=== PATIENT | male | born 1940 | race Caucasian/White ===

== ENCOUNTER 2017-09-01 14:57 | Emergency (ER) | payer MEDICARE, BC ==
[2017-09-01] MEDS ORDERED: Sodium Chloride 0.9% 10 ML Syringe FLUSH PRN (15:04)
[2017-09-01] MEDS ORDERED: Sodium Chloride 0.9% 2.5 ML Syringe FLUSH PRN (15:04)
--- NOTE | 2017-09-01 15:15 | EDM.PDOC ---
ED HPI GENERAL MEDICAL PROBLEM - General Chief Complaint: Neurological Problem Stated Complaint: CONFUSION Time Seen by Provider: 09/01/17 15:00 Source of Information: Reports: Patient History Limitations: Reports: No Limitations - History of Present Illness INITIAL COMMENTS - FREE TEXT/NARRATIVE: HISTORY AND PHYSICAL: History of present illness: [Patient comes to the emergency room to be evaluated for "change in his thinking ". He resides at a local assisted living facility. He states that his daughter called his doctor this morning regarding this change, and was advised to have the patient be seen in the emergency room. He states that he doesn't feel as though he is thinking clearly and he feels confused. No complaints or concerns. Denies recent illness infection and injury. Denies abdominal pain nausea and vomiting. No muscle or joint aches or pains. Complete Review of systems is reviewed and is completely negative.] Review of systems: As per history of present illness and below otherwise all systems reviewed and negative. Past medical history: As per history of present illness and as reviewed below otherwise noncontributory. Surgical history: As per history of present illness and as reviewed below otherwise noncontributory. Social history: No reported history of drug or alcohol abuse. Family history: As per history of present illness and as reviewed below otherwise noncontributory. Physical exam: HEENT: Atraumatic, normocephalic. Oral mucous membranes are pink and moist. Neck supple, no lymphadenopathy, trachea midline. Lungs: Clear to auscultation, breath sounds equal bilaterally. Heart: S1S2, regular rate and rhythm. negative for clicks, rubs, or JVD. Abdomen: Soft, nondistended, nontender. Negative for masses, guarding and rebound. Pelvis: Stable nontender. Genitourinary: Deferred. Rectal: Deferred. Extremities: Atraumatic, negative for cords or calf pain. No cyanosis or swelling to feet or lower legs. Neurovascular unremarkable. Neuro: Face is symmetrical. No facial droop noted. Awake, alert, oriented. Cranial nerves II through XII unremarkable. Motor and sensory unremarkable throughout. Patient has difficulty finding his words and identifying objects. 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 Diagnostics: [Head CT without contrast, EKG, CBC, CMP, UA, INR/PT/PTT, TSH, troponin] Impression: [dementia] Plan: [Stroke Code was called at 1500. Head CT is unremarkable. Dr. 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 Dr. Silva speaks with patient in the emergency room. All labs are unremarkable. patient is reassured and sent back to assisted living facility. ] Definitive disposition and diagnosis as appropriate pending reevaluation and review of above. - Related Data Allergies Allergy/AdvReac Type Severity Reaction Status Date / Time ACEINHIBITORS Allergy unknown Verified 12/08/13 09:02 [SWATI Inhibitors] Home Meds: Home Meds Aspirin/Calcium Carbonate/Mag [Aspirin Buffered 325 mg Tab] 2 tab PO DAILY 03/23 [History] Ezetimibe/Simvastatin [Vytorin 10-40 mg Tablet] 1 tab PO DAILY 03/23/16 [History ] Finasteride 1 tab PO DAILY 03/23/16 [History] Fish Oil/Borage/Flax/Om3,6,9#1 [[place] 3-6-9 1,200 mg Softgel] 1 tab PO DAILY [History] Folic Acid 1 tab PO DAILY 03/23/16 [History] Hm Vitamin C 500 mg PO DAILY 03/23/16 [History] Multivitamin [Daily Multiple Vitamin] 1 tab PO DAILY 03/23/16 [History] Polyethylene Glycol 3350 [Miralax] 1 cap PO DAILY 03/23/16 [History] Saw Sargent Fruit [Saw Sargent] 1 cap PO DAILY 03/23/16 [History] Sertraline HCl 1 tab PO DAILY 03/23/16 [History] Tiotropium [Spiriva HandiHaler] 1 cap INH DAILY 03/23/16 [History] Vit D3 & K/Berberine HCl/Hops [Ostera] 1 cap PO DAILY 03/23/16 [History] Past Medical History HEENT History: Reports: Other (See Below) Other HEENT History: wears glasses Cardiovascular History: Reports: High Cholesterol, Hypertension, DC Respiratory History: Reports: COPD Gastrointestinal History: Reports: None Genitourinary History: Reports: BPH Musculoskeletal History: Reports: None Neurological History: Reports: None Psychiatric History: Reports: Depression Endocrine/Metabolic History: Reports: None Hematologic History: Reports: Blood Transfusion(s) Other Hematologic History: he thinks he had a blood transfusion many years ago Immunologic History: Reports: None Oncologic (Cancer) History: Reports: None Dermatologic History: Reports: None - Past Surgical History Cardiovascular Surgical History: Reports: Coronary Artery Stent GI Surgical History: Reports: Hernia, Inguinal Social & Family History - Tobacco Use Smoking Status *Q: Former Smoker - Recreational Drug Use Recreational Drug Use: No Drug Use in Last 12 Months: No ED ROS GENERAL - Review of Systems Review Of Systems: ROS reveals no pertinent complaints other than HPI. - Physical Exam Exam: See Below Course - Vital Signs Last Recorded V/S: Last Vital Signs Temp 96.7 F 09/01/17 15:00 Pulse 70 09/01/17 15:00 Resp 18 09/01/17 15:00 BP 152/99 H 09/01/17 15:00 Pulse Ox 94 L 09/01/17 15:00 - Orders/Labs/Meds Orders: Active Orders 24 hr Category Date Time Status Assess Neurological Status [RC] ASDIRECTED Care 09/01/17 15:04 Active Bedrest [RC] ASDIRECTED Care 09/01/17 15:04 Active Blood Glucose Check, Bedside [RC] STAT Care 09/01/17 15:04 Active Cardiac Monitoring [RC] . DIRECTED Care 09/01/17 15:04 Active EKG Documentation Completion [RC] STAT Care 09/01/17 15:04 Active Height and Weight [RC] UPON Care 09/01/17 15:04 Active Initiate Acute Stroke Protocol [RC] STAT Care 09/01/17 15:04 Active NIH Stroke Scale [RC] ASDIRECTED Care 09/01/17 15:04 Active Nursing Bedside Swallow Screen [RC] ASDIRECTED Care 09/01/17 15:04 Active Oxygen Therapy [RC] ASDIRECTED Care 09/01/17 15:04 Active Stroke Education, General [RC] Click to Edit Care 09/01/17 15:04 Active Vital Signs [RC] Q15M Care 09/01/17 15:04 Active CBC WITH AUTO DIFF [HEME] Stat Lab 09/01/17 15:08 Results Sodium Chloride 0.9% [Saline Flush] Med 09/01/17 15:04 Active 10 ml FLUSH ASDIRECTED PRN Sodium Chloride 0.9% [Saline Flush] Med 09/01/17 15:04 Active 2.5 ml FLUSH ASDIRECTED PRN Peripheral IV Insertion Adult [OM.PC] Stat Oth 09/01/17 15:04 Ordered Peripheral IV Insertion Adult [OM.PC] Stat Oth 09/01/17 15:04 Ordered Resuscitation Status Stat Resus Stat 09/01/17 15:04 Ordered Medication Orders Sodium Chloride (Saline Flush) 10 ml FLUSH ASDIRECTED PRN PRN Reason: Keep Vein Open Sodium Chloride (Saline Flush) 2.5 ml FLUSH ASDIRECTED PRN PRN Reason: Keep Vein Open Labs: Laboratory Tests 09/01/17 09/01/17 09/01/17 Range/Units 15:08 15:08 15:08 WBC 6.86 (4.0-11.0) K/uL RBC 4.94 (4.50-5.90) M/uL Hgb 14.6 (13.0-17.0) g/dL Hct 44.1 (38.0-50.0) % MCV 89.3 (80.0-98.0) fL MCH 29.6 (27.0-32.0) pg MCHC 33.1 (31.0-37.0) g/dL RDW Std Deviation 47.2 (28.0-62.0) fl RDW Coeff of Yogi 14 (11.0-15.0) % Plt Count 136 L (150-400) K/uL MPV 9.50 (7.40-12.00) fL Add Manual Diff YES Nucleated RBC % 0.0 /100WBC Nucleated RBCs # 0 K/uL INR 1.07 APTT 27.3 (18.6-31.3) SEC Sodium 138 (136-148) mmol/L Potassium 4.1 (3.5-5.1) mmol/L Chloride 106 (98-107) mmol/L Carbon Dioxide 22.2 (21.0-32.0) mmol/L BUN 22 H (7.0-18.0) mg/dL Creatinine 1.1 (0.8-1.3) mg/dL Est Cr Clr Drug Dosing TNP Estimated GFR (MDRD) > 60.0 ml/min Glucose 105 (74-106) mg/dL Calcium 9.0 (8.5-10.1) mg/dL Total Bilirubin 0.5 (0.2-1.0) mg/dL AST 23 (15-37) IU/L ALT 14 (14-63) IU/L Alkaline Phosphatase 76 (46-116) U/L Troponin I < 0.050 (0.000-0.056) ng/mL Total Protein 7.0 (6.4-8.2) g/dL Albumin 3.2 L (3.4-5.0) g/dL Globulin 3.8 H (2.0-3.5) g/dL Albumin/Globulin Ratio 0.8 L (1.3-2.8) TSH 3rd Generation 3.25 (0.36-3.74) uIU/mL Meds: Medications Generic Name Dose Route Start Last Admin Trade Name Freq PRN Reason Stop Dose Admin Sodium Chloride 10 ml 09/01/17 15:04 Saline Flush FLUSH ASDIRECTED PRN Keep Vein Open Sodium Chloride 2.5 ml 09/01/17 15:04 Saline Flush FLUSH ASDIRECTED PRN Keep Vein Open Departure - Departure Time of Disposition: 16:30 Disposition: Home, Self-Care 01 Condition: Good Clinical Impression: Dementia - Discharge Information Referrals: PCP,Unknown [Primary Care Provider] - Forms: ED Department Discharge Additional Instructions: The following information is given to patients seen in the emergency department who are being discharged to home. This information is to outline your options for follow-up care. We provide all patients seen in our emergency department with a follow-up referral. The need for follow-up, as well as the timing and circumstances, are variable depending upon the specifics of your emergency department visit. If you don't have a primary care physician on staff, we will provide you with a referral. We always advise you to contact your personal physician following an emergency department visit to inform them of the circumstance of the visit and for follow-up with them and/or the need for any referrals to a consulting specialist. The emergency department will also refer you to a specialist when appropriate. This referral assures that you have the opportunity for follow-up care with a specialist. All of these measure are taken in an effort to provide you with optimal care, which includes your follow-up. Under all circumstances we always encourage you to contact your private physician who remains a resource for coordinating your care. When calling for follow-up care, please make the office aware that this follow-up is from your recent emergency room visit. If for any reason you are refused follow-up, please contact the [facility] emergency department at and asked to speak to the emergency department charge nurse. [facility] [address] [place] [id number] Follow-up with Dr. Silva as you have scheduled. - My Orders Last 24 Hours: My Active Orders 09/01/17 15:04 Assess Neurological Status [RC] ASDIRECTED Bedrest [RC] ASDIRECTED Blood Glucose Check, Bedside [RC] STAT Cardiac Monitoring [RC] . DIRECTED EKG Documentation Completion [RC] STAT Height and Weight [RC] UPON Initiate Acute Stroke Protocol [RC] STAT NIH Stroke Scale [RC] ASDIRECTED Nursing Bedside Swallow Screen [RC] ASDIRECTED Oxygen Therapy [RC] ASDIRECTED Stroke Education, General [RC] Click to Edit Vital Signs [RC] Q15M Sodium Chloride 0.9% [Saline Flush] 10 ml FLUSH ASDIRECTED PRN Sodium Chloride 0.9% [Saline Flush] 2.5 ml FLUSH ASDIRECTED PRN Peripheral IV Insertion Adult [OM.PC] Stat Peripheral IV Insertion Adult [OM.PC] Stat Resuscitation Status Stat 09/01/17 15:08 CBC WITH AUTO DIFF [HEME] Stat - Assessment/Plan Last 24 Hours: My Active Orders 09/01/17 15:04 Assess Neurological Status [RC] ASDIRECTED Bedrest [RC] ASDIRECTED Blood Glucose Check, Bedside [RC] STAT Cardiac Monitoring [RC] . DIRECTED EKG Documentation Completion [RC] STAT Height and Weight [RC] UPON Initiate Acute Stroke Protocol [RC] STAT NIH Stroke Scale [RC] ASDIRECTED Nursing Bedside Swallow Screen [RC] ASDIRECTED Oxygen Therapy [RC] ASDIRECTED Stroke Education, General [RC] Click to Edit Vital Signs [RC] Q15M Sodium Chloride 0.9% [Saline Flush] 10 ml FLUSH ASDIRECTED PRN Sodium Chloride 0.9% [Saline Flush] 2.5 ml FLUSH ASDIRECTED PRN Peripheral IV Insertion Adult [OM.PC] Stat Peripheral IV Insertion Adult [OM.PC] Stat Resuscitation Status Stat 09/01/17 15:08 CBC WITH AUTO DIFF [HEME] Stat
--- NOTE | 2017-09-01 15:32 | CT ---
EXAMINATION: Non contrast CT head. Coronal and sagittal reformats. HISTORY: Stroke code FINDINGS: No evidence of intra or extra axial hemorrhage, mass, midline shift, hydrocephalus or edema. Moderat e generalized atrophy. Mild periventricular and subcortical white matter hypodensities are noted. No hypoattenuation changes in the major vascular territories to suggest acute infarct. No abnormal intracranial calcifications are detected. Mild vascular calcifications. Moderate mucosal thickening within the right maxillary sinus. Orbits and globes are symmetric. Pituitary fossa appears unremarkable. Calvarium is intact. No evidence of skull fracture. IMPRESSION: 1. No acute intracranial findings. 2. Moderate generalized atrophy and mild small vessel ischemic changes. 3. Right maxillary sinus disease. The findings were called to the ER at 3:28 PM.
[2017-09-01 15:48] LABS: CHLORIDE,CL 106 mmol/L (98-107); SODIUM,NA 138 mmol/L (136-148)
[2017-09-01 19:26] VITALS: BP 117/77
== END 2017-09-01 16:45 | disposition home or self-care (01) ==
LOC: MW.ED 14:57
DX: F03.90 Unspecified dementia, unspecified severity, without behavioral disturbance, psychotic disturbance, mood disturbance, and anxiety (principal); Z88.8 Allergy status to other drugs, medicaments and biological substances; Z79.82 Long term (current) use of aspirin; Z79.899 Other long term (current) drug therapy; Z87.891 Personal history of nicotine dependence; R94.31 Abnormal electrocardiogram [ECG] [EKG]
CPT/HCPCS: 36415; 70450; 70450-26; 80053; 84443; 84484; 85025; 85610; 85730; 93005; 99283; 99285-25